=== PATIENT | female | born 1980 | race Caucasian/White ===

== ENCOUNTER → 2023-10-20 06:41 | Outpatient (REF) | payer OTHER, SELFPAY ==
[2023-10-20 09:03] LABS: Hepatitis B Surface Antibody Positive
[2023-10-22 16:54] LABS: Quantiferon Mitogen minus NIL 9.93 IU/mL; Quantiferon NIL 0.07 IU/mL; Quantiferon TB Gold Plus Negative (Negative)
== END ==
LOC: OHS 06:41
PROVIDERS: ATTENDING PHYSICIAN Nurse Practitioner Family
DX: Z23 Encounter for immunization (principal)
CPT/HCPCS: 36415; 86480; 86706